=== PATIENT | female | born 1970 | race Two or more races ===

== ENCOUNTER 2022-12-01 10:27 | Inpatient (IN) | payer OTHER ==
[~2022-12-01] VITALS: Ht 149.9 cm; Wt 63.0 kg
[~2022-12-01 10:27] MED LIST: AMLODIPINE-OLM1 EAC2 PO; ATORVASTATIN CA40 MG PO; COZAAR100 MG PO; GLUMETZA500 MG PO; HORIZANT300 MG PO; HUMALOG100 UNIT/2 SQ; LANTUS SOL100 UNIT/1 SQ; LASIX20 MG PO
== END 2022-12-17 21:16 | disposition designated cancer center or children's hospital (05) | DRG 193 ==
LOC: ER 10:27 → MEDJ 20:38 → MEDI 20:38 → MEDJ 22:10
PROVIDERS: ADMIT Internal Medicine; ATTEND Internal Medicine
PROC: 0JHD3XZ Insertion of Tunneled Vascular Access Device into Right Upper Arm Subcutaneous Tissue and Fascia, Percutaneous Approach (ICD-10-PCS; principal; 2022-12-01)
PROC: 3E0F7GC Introduction of Other Therapeutic Substance into Respiratory Tract, Via Natural or Artificial Opening (ICD-10-PCS; 2022-12-01)
PROC: 30233N1 Transfusion of Nonautologous Red Blood Cells into Peripheral Vein, Percutaneous Approach (ICD-10-PCS; 2022-12-02)
PROC: 5A1D70Z Performance of Urinary Filtration, Intermittent, Less than 6 Hours Per Day (ICD-10-PCS; 2022-12-02)
PROC: 5A1D70Z Performance of Urinary Filtration, Intermittent, Less than 6 Hours Per Day (ICD-10-PCS; 2022-12-04)
PROC: BW2FYZZ Computerized Tomography (CT Scan) of Neck using Other Contrast (ICD-10-PCS; 2022-12-07)
PROC: 5A1D70Z Performance of Urinary Filtration, Intermittent, Less than 6 Hours Per Day (ICD-10-PCS; 2022-12-07)
PROC: 5A1D70Z Performance of Urinary Filtration, Intermittent, Less than 6 Hours Per Day (ICD-10-PCS; 2022-12-09)
PROC: 5A1D70Z Performance of Urinary Filtration, Intermittent, Less than 6 Hours Per Day (ICD-10-PCS; 2022-12-11)
PROC: 5A0935A Assistance with Respiratory Ventilation, Less than 24 Consecutive Hours, High Flow/Velocity Cannula (ICD-10-PCS; 2022-12-16)
PROC: 4A12X4Z Monitoring of Cardiac Electrical Activity, External Approach (ICD-10-PCS; 2022-12-16)
PROC: 5A1D70Z Performance of Urinary Filtration, Intermittent, Less than 6 Hours Per Day (ICD-10-PCS; 2022-12-16)
DX: J18.9 Pneumonia, unspecified organism (principal); E11.00 Type 2 diabetes mellitus with hyperosmolarity without nonketotic hyperglycemic-hyperosmolar coma (NKHHC); N18.6 End stage renal disease; I13.11 Hypertensive heart and chronic kidney disease without heart failure, with stage 5 chronic kidney disease, or end stage renal disease; J44.1 Chronic obstructive pulmonary disease with (acute) exacerbation; I12.0 Hypertensive chronic kidney disease with stage 5 chronic kidney disease or end stage renal disease; N17.8 Other acute kidney failure; U09.9 Post COVID-19 condition, unspecified; J38.6 Stenosis of larynx; E11.22 Type 2 diabetes mellitus with diabetic chronic kidney disease; D63.1 Anemia in chronic kidney disease; E86.0 Dehydration; D72.828 Other elevated white blood cell count; Z99.2 Dependence on renal dialysis; Z79.4 Long term (current) use of insulin; E11.65 Type 2 diabetes mellitus with hyperglycemia; E87.5 Hyperkalemia

== ENCOUNTER 2023-02-12 23:06 | Emergency (ER) | payer OTHER ==
[~2023-02-12] VITALS: Ht 162.6 cm; Wt 72.6 kg
== END 2023-02-13 01:09 | disposition home or self-care (01) ==
LOC: ER 23:06
DX: I12.0 Hypertensive chronic kidney disease with stage 5 chronic kidney disease or end stage renal disease (principal); N18.6 End stage renal disease; Z99.2 Dependence on renal dialysis

== ENCOUNTER 2023-11-10 15:31 | Emergency (ER) | payer OTHER ==
[~2023-11-10] VITALS: Ht 149.9 cm; Wt 72.6 kg
[2023-11-10 17:31] LABS: HEMATOCRIT 37.1 % (36.0-45.00); HEMOGLOBIN 12.1 g/dL (12.0-15.00); MEAN CELL VOLUME 89.8 fL (80.00-100.00); MEAN CORPUSCULAR HEMOGLOBIN 29.2 pg (27.00-32.0); MEAN CORPUSCULAR HGB CONC 32.5 g/dl (32.0-36.0); PLATELET COUNT 187 K/uL (150-450); RED BLOOD COUNT 4.14 M/uL (4.00-6.00); RED CELL DISTRIBUTION WIDTH 15.9 % (11.5-14.5)
[2023-11-10 19:05] LABS: INR 1.16; PARTIAL THROMBOPLASTIN TIME 31.6 SECONDS (22.0-34.0)
[2023-11-10 19:09] LABS: CALCIUM 9.5 mg/dL (8.5-10.1); CREATININE SERUM 3.7 mg/dL (0.55-1.02); GFR 12.86
== END 2023-11-10 20:31 | disposition home or self-care (01) ==
LOC: ER 15:31
PROVIDERS: General Practice
DX: I10 Essential (primary) hypertension (principal); Z99.2 Dependence on renal dialysis; E11.9 Type 2 diabetes mellitus without complications; Z79.4 Long term (current) use of insulin; I50.9 Heart failure, unspecified; N18.6 End stage renal disease; Z93.0 Tracheostomy status

== ENCOUNTER 2024-01-25 13:02 | Emergency (ER) | payer OTHER ==
[~2024-01-25] VITALS: Ht 149.9 cm; Wt 72.6 kg
[2024-01-25] MEDS ORDERED: CARDURA8 MG (13:12)
[2024-01-25] MEDS ORDERED: DEXAMETHASONE SODIUM PHOSPHATE 4 MG/ML VIAL IM STA (14:17)
[2024-01-25] MEDS ORDERED: MIDAZOLAM HCL/PF 5 MG/ML VIAL IV STA (15:52)
[2024-01-25] MEDS ORDERED: MEPERIDINE HCL/PF 25 MG/ML VIAL IV STA (15:53)
[2024-01-25] MEDS ORDERED: FLUMAZENIL 0.5 MG/5 ML ML IV STA (15:54)
[2024-01-25] MEDS ORDERED: MIDAZOLAM HCL 2 MG/2 ML VIAL IV STA (16:39)
== END 2024-01-25 16:56 | disposition home or self-care (01) ==
LOC: ER 13:03
DX: S50.01XA Contusion of right elbow, initial encounter (principal); S70.01XA Contusion of right hip, initial encounter; W19.XXXA Unspecified fall, initial encounter; Y93.89 Activity, other specified; Y92.89 Other specified places as the place of occurrence of the external cause